=== PATIENT | male | born 1940 | race Caucasian/White ===

== ENCOUNTER → 2017-04-14 | Outpatient (CLI) | payer MEDICARE, BC ==
[~2017-04-14] MED LIST: CELEXA20 M1; CHEWABLE ASPIRI81 MG PO; HALDOL PO; K-DUR20 ME1 PO; LASIX20 MG PO; LIPITOR40 MG PO; LISINOPRIL20 MG PO; NO MEDICATIONS; NORVASC PO; VIMPAT100 MG PO
--- NOTE | ~2017-04-14 | MR18 ---
[facility] A Service of [facility] & [facility] RADIOLOGY TEXT RESULTS PATIENT: LAZ CARTER LOCATION: [facility] : 40 UNIT #: [id number] AGE: [address]: Rikki Rodriguez MD SEX: M ORDER DR: [id number] [place] [id number] MR#: [id number] Acc #: [id number] NAME: LAZ CARTER. : 1940 SEX: M STUDY DATE/TIME: 04/14/2017 10:43 UNIT: [facility] ROOM: STUDY DESCRIPTION: MR Brain Wo Contrast Attending Physician: Rikki Rodriguez M.D. Referring Physician: Rikki Rodriguez M.D. Ordering Physician: Rikki Rodriguez M.D. Primary Care Physician: Rikki Rodriguez M.D. MRI CENTER REPORT This report is preliminary unless electronic signature is present. EXAM MRI of the brain without HISTORY 76-year-old male with visual blurring and memory loss for 7 months. Patient complains of progressive worsening memory loss and unsteadiness on feet/off balance and confusion since previous MRI performed 08/2016. He indicates right eye visual loss, left eye blurred vision. Frequent falls. History of hypertension, diabetes seizure disorder and many strokes. TECHNIQUE MRI of the brain was performed without contrast using routine 1.5-T wide-bore imaging technique. COMPARISON STUDIES Comparison study is from 09/01/2016. FINDINGS There is no evidence for a recent ischemic insult on the diffusion series. There is atrophy greater than expected for the patient's stated age and again, this is disproportionate in areas including the bilateral frontal lobes, left greater than right, bilateral temporal lobes with widening of the sylvian fissures. Some involvement to a lesser extent in the bilateral parietal lobes. There is also possible posterior fossa arachnoid cyst or hugo cisterna magna. Additionally, there is disproportionate ventricular enlargement and moderate white matter disease which is nonspecific but probably due to small vessel disease as well as likely lacunar insults in the bilateral basal ganglia and thalami, most focal in the posterior limb of the left internal capsule to the left mendoza radiata and caudate nucleus. Signal abnormality in the brainstem is probably due to small vessel disease. Major intracranial flow voids are maintained. Findings are not significantly changed from the previous STS. [facility] A Service of [facility] RADIOLOGY TEXT RESULTS PATIENT: LAZ CARTER LOCATION: [facility] : 40 UNIT #: [id number] AGE: [address]: Rikki Rodriguez MD SEX: M ORDER DR: study. There is no MRI evidence for intracranial hemorrhage. Given the amount of atrophy and the pattern of involvement, a consideration for the cause of the patient's dementia would include frontotemporal-type dementia. Given the amount of small vessel disease, there may also be a component of multi-infarct dementia. Finally, it is conceivable that there is some component of normal-pressure hydrocephalus given the ventricular enlargement. Please correlate further clinically. IMPRESSION 1. Re-demonstration of multiple abnormalities which could be associated with the patient's complaints of dementia. No significant interval change since the study of 09/01/2016. No recent ischemic insult or intracranial mass effect is appreciated. 2. There is, again, atrophy greater than expected for age group. Please correlate for any clinical concern for frontotemporal-type of dementia, given pattern noted. Please correlate as well for any concern for normal-pressure hydrocephalus given the disproportionate ventricular enlargement. Finally, there is considerable probable sequelae of small vessel disease and this could indicate a component of associated multi-infarct dementia. Dictated by... Ivory Brownlee M.D. THIS IS AN ELECTRONICALLY VERIFIED REPORT Ivory Brownlee M.D. at 04/17/2017 10:25 AM ASHOK/elan TD: 04/14/2017 22:55 JOB #: [id number] MRI CENTER REPORT Page 1 of 1
== END | disposition home or self-care (01) ==
LOC: SMRI 10:15
DX: H53.8 Other visual disturbances (principal); G40.909 Epilepsy, unspecified, not intractable, without status epilepticus; E11.9 Type 2 diabetes mellitus without complications; I10 Essential (primary) hypertension; R41.3 Other amnesia; G31.9 Degenerative disease of nervous system, unspecified
CPT/HCPCS: 70551